=== PATIENT | male | born 1990 | race Caucasian/White ===

== ENCOUNTER 2021-01-04 19:22 | Emergency (ER) | payer MEDICAID ==
[~2021-01-04] VITALS: Ht 180.3 cm; Wt 74.0 kg
[2021-01-04 20:29] VITALS: BP 103/71
[2021-01-04] MEDS: IBUPROFEN 600MG TABLET PO ONE (20:29)
== END 2021-01-04 22:03 | disposition home or self-care (01) ==
LOC: ER 19:22
DX: S30.0XXA Contusion of lower back and pelvis, initial encounter (principal); Z98.890 Other specified postprocedural states; V49.9XXA Car occupant (driver) (passenger) injured in unspecified traffic accident, initial encounter; Y93.89 Activity, other specified; Y92.89 Other specified places as the place of occurrence of the external cause; Y99.8 Other external cause status
CPT/HCPCS: 72100; 99283